=== PATIENT | male | born 1955 | race Caucasian/White ===

== ENCOUNTER 2020-08-08 06:31 | Day surgery (SDC) | payer OTHER ==
[2020-08-08] VITALS (11 sets, daily range): BP systolic 122–148; BP diastolic 8–90
[~2020-08-08] VITALS: Ht 180.3 cm; Wt 79.4 kg
[~2020-08-08 06:31] MED LIST: CETIRIZINE HCL10 MG PO; Vit C PO; ceFAZolin 1gm IVPB IVPB ONE; celeBREX 200mg Cap **SURGERY PATIENTS ONLY ORAL ONE; oxyCONTIN 20mg tab ORAL ONE
[2020-08-08] MEDS ORDERED: HYDROCHLOROTHIA25 MG ORAL (07:18)
--- NOTE | 2020-08-08 08:03 | Pre-Procedure Note/Attestation ---
Pre-Procedure Note/Attestation Complete Prior to Procedure Planned Procedure: left Procedure Narrative: shoulder arthroscopy, sad, rt repair Indications for Procedure Pre-Operative Diagnosis: left shoulder rct , impingement Attestation I attest that I discussed the nature of the procedure; its benefits; risks and complications; and alternatives (and the risks and benefits of such alternat adelina), prior to the procedure, with the patient (or the patient's legal parts counter representative). I attest that, if there was a reasonable possibility of needing a blood transfusion, the patient (or the patient's legal parts counter representative) was given the [facility] standardized written summary, pursuant to the Dinesh Reinbeck Blood Safety Act ([place] Health and Safety Code # 1645, as amended). I attest that I re-evaluated the patient just prior to the surgery and that there has been no change in the patient's H&P, except as documented below: Chad Davila MD Aug 08, 2020 08:03
--- NOTE | 2020-08-08 08:04 | Operative Note - PDOC ---
Operative Note Operative Note Pre-op Diagnosis: left shoulder rct , impingement Procedure: see op report Post-op Diagnosis: same as pre-op plus Operative Findings: consistent w/pre-op dx studies Anesthesia: regional Specimen: none Complications: none Condition: stable Estimated Blood Loss: none Implant(s) used?: No Chad Davila MD Aug 08, 2020 08:04
[2020-08-08] MEDS ORDERED: Tylenol #3 tab (300mg/30mg) ORAL PRN (08:15)
[2020-08-08] MEDS ORDERED: HYDROcodone/Acetamin 5/325 tab ORAL PRN (08:15)
[2020-08-08] MEDS ORDERED: HYDROmorphone 1mg/ml Carpuject SUBQ PRN (08:15)
[2020-08-08] MEDS ORDERED: Midazolam 2mg/2ml Inj ONE (10:06)
[2020-08-08] MEDS ORDERED: fentaNYL 100 mcg/2 mL IV ONE (10:06)
[2020-08-08] MEDS ORDERED: EPINEPHrine 1mg/1ml Amp ONE (10:10)
[2020-08-08] MEDS ORDERED: Bupivacaine 0.25% Inj 30ml INJ ONE ×2 (10:11→10:24)
--- NOTE | 2020-08-08 10:23 | Anethesia Preoperative Eval ---
Anesthesia Pre-op PMH/ROS General Date of Evaluation: Aug 08, 2020 Time of Evaluation: 10:20 Anesthesiologist: jose a ASA Score: ASA 2 Mallampati Score Class I : Soft palate, uvula, fauces, pillars visible Class II: Soft palate, uvula, fauces visible Class III: Soft palate, base of uvula visible Class IV: Only hard plate visible Mallampati Classification: Class II Surgeon: belén Diagnosis: shoulder shoulder impingment Surgical Procedure: Left shoulder arthroscopy Anesthesia History: none Family History: no anesthesia problems Allergies: Coded Allergies: CARROT (Verified Allergy, Intermediate, throat closes up, 08/05/20) PEANUT (Verified Allergy, Intermediate, throat closes up, 08/05/20) Medications: see eMAR Patient NPO?: Yes NPO Date: Aug 08, 2020 NPO Time: 00:01 Past Medical History Cardiovascular: Reports: HTN; Denies: CAD, VT, valve dz, arrhythmia, other Pulmonary: Denies: asthma, COPD, BETITO, other Gastrointestinal/Genitourinary: Denies: GERD, CRI, ESRD, other Neurologic/Psychiatric: Denies: dementia, CVA, depression/anxiety, TIA, other Endocrine: Denies: DM, hypothyroidism, steroids, other HEENT: Denies: cataract (L), cataract (R), glaucoma, HAMILTON (L), HAMILTON (R), other Hematology/Immune: Denies: anemia, DVT, bleeding disorder, other Musculoskeletal/Integumentary: Denies: OA, RA, DJD, DDD, edema, other Other: obesity PSxH Narrative: hernia repair Anesthesia Pre-op Phys. Exam Physician Exam Last Vital Signs Date Time Temp Pulse Resp B/P (MAP) Pulse Ox O2 Delivery O2 Flow Rate FiO2 08/08/20 07:05 Room Air 08/08/20 07:05 98.0 18 18 148/78 64 Constitutional: NAD Neurologic: CN 2-12 intact Cardiovascular: RRR Respiratory: CTA Gastrointestinal: S/NT/ND Airway Exam Mallampati Classification 2 Mallampati Score: Class II MO: full Neck: thick TMD: 1fb ROM: full Dentures: no upper, no lower Anesthesia Pre-op A/P Studies Pre-op Studies: EKG - SR Risk Assessment & Plan Assessment: covid neg Plan: General /ISB Status Change Before Surgery: No Pre-Antibiotics Drug: ancef Given Within 1 Hr of Incision: Yes Time Given: 10:40 Jacinda Durand CRNA Aug 08, 2020 10:23
[2020-08-08] MEDS ORDERED: Rocuronium Bromide 50mg/5ml Inj IV ONE (10:24)
[2020-08-08] MEDS ORDERED: Ketorolac 30mg Inj ONE (10:28)
[2020-08-08] MEDS ORDERED: Kenalog-40 1ml Vial ONE (10:28)
[2020-08-08] MEDS ORDERED: fentaNYL 100 mcg/2 mL IV PRN (10:30)
[2020-08-08] MEDS ORDERED: Hydromorphone 0.5mg/0.5ml inj IVP PRN (10:30)
[2020-08-08] MEDS ORDERED: Metoclopramide 10mg/2ml Inj IVP PRN (10:30)
[2020-08-08] MEDS ORDERED: LR 1000ml ONE (10:30)
[2020-08-08] MEDS ORDERED: Neostigmine 1mg/ml 10ml Inj ONE (11:29)
[2020-08-08] MEDS ORDERED: Ropivacaine 5mg/ml Vial 20ml INJ ONE (11:29)
[2020-08-08] MEDS ORDERED: ePHEDrine 50mg/ml Inj ONE (11:29)
[2020-08-08] MEDS ORDERED: Metoclopramide 10mg/2ml Inj ONE (11:29)
[2020-08-08] MEDS ORDERED: Glycopyrrolate 0.2mg/ml 1ml Vial ONE (11:29)
[2020-08-08] MEDS ORDERED: Lidocaine 1% MPF 10mg/ml 5ml ONE (11:29)
--- NOTE | 2020-08-08 12:26 | Immediate Post-Op Evaluation ---
Immediate Post-Op Evalulation Immediate Post-Op Evalulation Procedure: left shoulder arthroscopy with SLAP repair Date of Evaluation: Aug 08, 2020 Time of Evaluation: 12:26 IV Fluids: 750 Blood Pressure Systolic: 135 Blood Pressure Diastolic: 60 Pulse Rate: 70 Respiratory Rate: 14 O2 Sat by Pulse Oximetry: 98 Temperature (Fahrenheit): 97.8 Nausea: No Vomiting: No Complications none Patient Status: awake, reacts, patent Hydration Status: adequate Drug: ancef Given Within 1 Hr of Incision: Yes Time Given: 10:40 Jacinda Durand CRNA Aug 08, 2020 12:26
[2020-08-08] MEDS ORDERED: D5 1/2NS 1,000 ML IV SCH (14:00)
--- NOTE | 2020-08-08 14:47 | 48 Hour Post Anesthesia Eval ---
Post Anesthesia Evaluation Procedure: left shoulder arthroscopy with SLAP repair Date of Evaluation: Aug 08, 2020 Time of Evaluation: 14:46 Blood Pressure Systolic: 128 0: 80 Pulse Rate: 70 Respiratory Rate: 14 O2 Sat by Pulse Oximetry: 98 Airway: patent Nausea: No Vomiting: No If pain is > 6 Comment: 0 Hydration Status: adequate Cardiopulmonary Status: stable Mental Status/LOC: patient returned to baseline Follow-up Care/Observations: na Post-Anesthesia Complications: none Follow-up care needed: N/A Jacinda Durand CRNA Aug 08, 2020 14:47
--- NOTE | 2020-08-08 15:30 | Operative Note - Dictated ---
DATE OF OPERATION: 08/08/2020 PREOPERATIVE DIAGNOSES: 1. Left shoulder rotator cuff tear. 2. Left shoulder full-thickness rotator cuff tear. 3. Left shoulder anterior labral tear. 4. Subacromial bursitis/impingement syndrome. POSTOPERATIVE DIAGNOSES: 1. Left shoulder rotator cuff tear. 2. Left shoulder full-thickness rotator cuff tear. 3. Left shoulder anterior labral tear. 4. Subacromial bursitis/impingement syndrome. PROCEDURE PERFORMED: 1. Left shoulder arthroscopy extensive intraarticular debridement. 2. Left shoulder arthroscopic rotator cuff repair. 3. Left shoulder subacromial decompression bursectomy. SURGEON: Chad Davila MD ANESTHESIA: Interscalene general. INDICATION FOR PROCEDURE: Patient is a pleasant gentleman who has had significant left shoulder pain. Had an MRI, which showed a full-thickness tear, failed conservative treatment, elected to undergo left shoulder arthroscopy with rotator cuff repair. Risks, limitations, expectations, complications were discussed in detail. All questions addressed. DESCRIPTION OF PROCEDURE: After informed consent was obtained, patient was brought to the operating room. Patient was placed under anesthesia. Patient was placed in beach-chair position. Left shoulder was prepped and draped in a sterile manner. Time-out was performed. An inferolateral stab incision was then made. Trocar introduced in the glenohumeral joint. Systemic tour of the shoulder was performed. There was some fraying in the anterior labrum. There was some tenosynovitis in the biceps tendon. The biceps tendon was intact along with the subscap. No chondral damage. The footprint of supraspinatus was completely detached from the greater tuberosity. Camera was then placed through this tear. Intraarticular debridement of the labrum was performed along with the tissue just lateral to the articular margin debrided to healthy bleeding surface. Camera was then positioned in the subacromial space. Complete bursectomy was performed. Acromioplasty was started from lateral to medial completed from posterior to anterior. Once that was done, 2 anchors were then placed through the rotator cuff to repair moved as a unit. Camera was repositioned in the subacromial space. The footprint was recreated. At this point, the camera was removed. Portal sites were closed using 3-0 Monocryl sutures. Steri-Strips and a sterile dressing were applied. ESTIMATED BLOOD LOSS: None. COMPLICATIONS: None. SPECIMENS: None. IMPLANTS: Include 2 rotator cuff anchors. Chad Davila M.D. DR: NICA JOB#: [id number] CC:
== END 2020-08-08 14:00 | disposition home or self-care (01) ==
LOC: SUR 06:31
DX: M75.122 Complete rotator cuff tear or rupture of left shoulder, not specified as traumatic (principal); S43.432A Superior glenoid labrum lesion of left shoulder, initial encounter; M75.42 Impingement syndrome of left shoulder; X58.XXXA Exposure to other specified factors, initial encounter; Y92.9 Unspecified place or not applicable; M65.812 Other synovitis and tenosynovitis, left shoulder; I10 Essential (primary) hypertension; E66.9 Obesity, unspecified; Z91.010 Allergy to peanuts; Z91.018 Allergy to other foods
CPT/HCPCS: 29823; 29826; 29827; 94003; C1713; J0171; J0690; J2250; J2405; J2704; J2710; J2765; J2795; J3010; J3490; J7120; U0002; 94150